=== PATIENT | female | born 1995 | race African-American/Black ===

== ENCOUNTER 2019-04-12 02:37 | Emergency (ER) | payer MEDICAID ==
[~2019-04-12] VITALS: Ht 177.8 cm; Wt 87.0 kg
[2019-04-12] MEDS ORDERED: SODIUM CHLORIDE 0.9% 1,000 ML IV ONE (03:59)
[2019-04-12] MEDS ORDERED: METOCLOPRAMIDE HCL 10MG/2ML VIAL IV ONE (04:00)
[2019-04-12 04:25] LABS: CLARITY URINE CLOUDY (CLEAR); COLOR URINE YELLOW (YELLOW); KETONES URINE TRACE (NEGATIVE); LEUKOCYTE ESTERASE URINE 3+ (NEGATIVE); NITRITE URINE NEGATIVE (NEGATIVE); OCCULT BLOOD URINE 2+ (NEGATIVE); PROTEIN URINE NEGATIVE (NEGATIVE); SPECIFIC GRAVITY URINE 1.024 (1.005-1.030)
[2019-04-12 04:26] LABS: BASOPHILS % 0.7 % (0.0-2.0); EOSINOPHILS % 1.3 % (0.0-5.0); HEMATOCRIT. 40.1 % (36.0-48.0); HEMOGLOBIN. 13.7 g/dL (12.0-16.0); LYMPHOCYTES % 24.1 % (20.0-50.0); MEAN CORPUSCULAR HEMOGLOBIN 32.2 pg (28.0-32.0); MEAN CORPUSCULAR VOLUME 94.5 fL (81.0-99.0); MEAN PLATELET VOLUME 7.9 fl (7.4-10.4); MONOCYTES % 11.1 % (2.0-8.0); NEUTROPHILS % 62.8 % (40.0-76.0); PLATELET 276 x1000/uL (130-400); RED BLOOD CELL COUNT 4.24 mill/uL (4.2-5.4); RED CELL DISTRIBUTION WIDTH 12.7 % (11.6-14.6)
[2019-04-12 04:32] LABS: CHLORIDE 107 mEq/L (98-107)
[2019-04-12 04:33] LABS: HCG SCREEN POSITIVE
[2019-04-12 04:56] LABS: B-HCG QUANTITATIVE 26112 mIU/mL (<3)
[2019-04-12 07:09] VITALS: BP 121/78
== END 2019-04-12 07:25 | disposition home or self-care (01) ==
LOC: ER 02:37
DX: O23.41 Unspecified infection of urinary tract in pregnancy, first trimester (principal); Z3A.01 Less than 8 weeks gestation of pregnancy
CPT/HCPCS: 36415; 76801; 76817; 80053; 81003; 81025; 84702; 84703; 85025; 86850; 86900; 86901; 87077; 87086; 87186; 96361; 96374; 99284; J2765; J7030; Z7610

== ENCOUNTER 2021-08-23 08:12 | Emergency (ER) | payer MEDICAID ==
[~2021-08-23] VITALS: Ht 162.6 cm; Wt 102.0 kg
[2021-08-23 08:15] VITALS: BP 128/75
== END 2021-08-23 09:49 | disposition home or self-care (01) ==
LOC: ER 08:12
DX: Z32.02 Encounter for pregnancy test, result negative (principal)
CPT/HCPCS: 81025; 99282

== ENCOUNTER 2021-12-15 11:27 | Emergency (ER) | payer MEDICAID ==
[~2021-12-15] VITALS: Ht 167.6 cm; Wt 88.0 kg
[2021-12-15] MEDS ORDERED: SODIUM CHLORIDE 0.9% 1,000 ML IV ONE (12:00)
[2021-12-15 12:16] VITALS: BP 107/68
[2021-12-15 12:24] LABS: BASOPHILS % 0.2 % (0.0-2.0); EOSINOPHILS % 0.9 % (0.0-5.0); HEMOGLOBIN. 14.3 g/dL (12.0-16.0); LYMPHOCYTES % 14.7 % (20.0-50.0); MEAN CORPUSCULAR HEMOGLOBIN 31.6 pg (28.0-32.0); MEAN CORPUSCULAR VOLUME 92.5 fL (81.0-99.0); MEAN PLATELET VOLUME 8.3 fl (7.4-10.4); MONOCYTES % 5.5 % (2.0-8.0); NEUTROPHILS % 78.7 % (40.0-76.0); PLATELET 319 x1000/uL (130-400); RED BLOOD CELL COUNT 4.54 mill/uL (4.2-5.4); RED CELL DISTRIBUTION WIDTH 12.6 % (11.6-14.6)
[2021-12-15 12:35] LABS: CHLORIDE 106 mEq/L (98-107)
[2021-12-15 12:42] LABS: BETA HYDROXYBUTYRATE 0.1 mMol/L (0.0-0.3)
[2021-12-15] MEDS ORDERED: ACETAMINOPHEN 325MG TABLET PO ONE (13:15)
[2021-12-15 14:27] LABS: CLARITY URINE TURBID (CLEAR); COLOR URINE YELLOW (YELLOW); KETONES URINE NEGATIVE (NEGATIVE); LEUKOCYTE ESTERASE URINE 1+ (NEGATIVE); NITRITE URINE NEGATIVE (NEGATIVE); OCCULT BLOOD URINE TRACE (NEGATIVE); PROTEIN URINE NEGATIVE (NEGATIVE); SPECIFIC GRAVITY URINE 1.028 (1.005-1.030)
[2021-12-15] MEDS ORDERED: TOPUD MT (15:24)
[2021-12-15] MEDS ORDERED: METR500T MT (15:24)
[2021-12-15] MEDS ORDERED: CEPH250T MT (15:24)
== END 2021-12-15 16:47 | disposition home or self-care (01) ==
LOC: ER 11:27
DX: O23.41 Unspecified infection of urinary tract in pregnancy, first trimester (principal); N39.0 Urinary tract infection, site not specified; A59.9 Trichomoniasis, unspecified; B96.89 Other specified bacterial agents as the cause of diseases classified elsewhere; O24.414 Gestational diabetes mellitus in pregnancy, insulin controlled; R73.9 Hyperglycemia, unspecified; O99.281 Endocrine, nutritional and metabolic diseases complicating pregnancy, first trimester; E87.1 Hypo-osmolality and hyponatremia; E87.5 Hyperkalemia; Z3A.01 Less than 8 weeks gestation of pregnancy
CPT/HCPCS: 36415; 80053; 81003; 82010; 82962; 83690; 85025; 96360; 99283; J7030

== ENCOUNTER 2022-03-20 08:02 | Observation (INO) | payer MEDICAID ==
[~2022-03-20] VITALS: Ht 162.6 cm; Wt 112.0 kg
[~2022-03-20 08:02] MED LIST: CEPH250T MT; METR500T MT; TOPUD MT
[2022-03-20 08:09] VITALS: BP 126/76
[2022-03-20] MEDS ORDERED: PNV1TABL76 MT (10:01)
== END 2022-03-20 10:05 | disposition home or self-care (01) ==
LOC: ER 08:26 → 8 EST A/PP 09:32
PROVIDERS: ADMIT Specialist; ATTEND Specialist
DX: O36.8120 Decreased fetal movements, second trimester, not applicable or unspecified (principal); O24.419 Gestational diabetes mellitus in pregnancy, unspecified control; Z79.899 Other long term (current) drug therapy; Z3A.23 23 weeks gestation of pregnancy
CPT/HCPCS: 99281; G0378; 59025; 99284

== ENCOUNTER 2022-06-10 11:22 | Observation (INO) | payer MEDICAID ==
[~2022-06-10] VITALS: Ht 162.6 cm; Wt 127.0 kg
[~2022-06-10 11:22] MED LIST changes: -CEPH250T MT; -METR500T MT; +PNV1TABL76 MT; -TOPUD MT
[2022-06-10] MEDS ORDERED: LACTATED RINGERS 1,000 ML IV SCH (12:00)
[2022-06-10] MEDS ORDERED: ONDANSETRON HCL 4MG/2ML INJ IV PRN (12:00)
[2022-06-10 12:57] LABS: BASOPHILS % 0.3 % (0.0-2.0); EOSINOPHILS % 0.2 % (0.0-5.0); HEMOGLOBIN. 13.9 g/dL (12.0-16.0); MEAN CORPUSCULAR HEMOGLOBIN 31.5 pg (28.0-32.0); MEAN CORPUSCULAR VOLUME 92.7 fL (81.0-99.0); MEAN PLATELET VOLUME 8.4 fl (7.4-10.4); MONOCYTES % 8.6 % (2.0-8.0); NEUTROPHILS % 76.9 % (40.0-76.0); PLATELET 251 x1000/uL (130-400); RED BLOOD CELL COUNT 4.42 mill/uL (4.2-5.4); RED CELL DISTRIBUTION WIDTH 13.6 % (11.6-14.6)
[2022-06-10 13:05] LABS: CHLORIDE 104 mEq/L (98-107)
[2022-06-10] MEDS ORDERED: ONDANSETRON 4MG ODT PO NR (14:00)
[2022-06-11] MEDS ORDERED: INSU100I24 SQ (07:04)
== END 2022-06-10 14:15 | disposition home or self-care (01) ==
LOC: 8 EST LDRP 11:22
PROVIDERS: ADMIT Obstetrics & Gynecology; ATTEND Obstetrics & Gynecology
DX: O21.2 Late vomiting of pregnancy (principal); Z20.822 Contact with and (suspected) exposure to COVID-19; O24.419 Gestational diabetes mellitus in pregnancy, unspecified control; Z79.4 Long term (current) use of insulin; Z3A.33 33 weeks gestation of pregnancy
CPT/HCPCS: 36415; 59025; 76805; 76818; 80053; 85025; 87426; G0378; J2405; Q0162; 99281; J7120

== ENCOUNTER 2022-06-10 14:04 | Emergency (ER) | payer MEDICAID ==
[~2022-06-10] VITALS: Ht 162.6 cm; Wt 136.0 kg
[2022-06-10 14:20] VITALS: BP 141/80
[2022-06-11] MEDS ORDERED: INSU100I24 SQ (07:04)
== END 2022-06-10 18:29 | disposition left against medical advice (07) ==
LOC: ER 14:04
DX: Z53.21 Procedure and treatment not carried out due to patient leaving prior to being seen by health care provider (principal); E11.9 Type 2 diabetes mellitus without complications; Z88.3 Allergy status to other anti-infective agents

== ENCOUNTER 2022-06-11 04:56 | Inpatient (IN) | payer MEDICAID ==
[~2022-06-11] VITALS: Ht 167.6 cm; Wt 117.9 kg
[2022-06-11] MEDS ORDERED: ONDANSETRON HCL 4MG/2ML INJ IV ONE (05:30)
[2022-06-11] MEDS ORDERED: BUTORPHANOL TARTRATE 2 MG/ML VIAL IV PRN (05:30)
[2022-06-11] MEDS ORDERED: LACTATED RINGERS 1,000 ML IV ONE (05:30)
[2022-06-11 05:41] VITALS: BP 157/88
[2022-06-11] MEDS ORDERED: PANTOPRAZOLE SODIUM 40 MG/VIAL IV ONE (05:45)
[2022-06-11 06:30] LABS: HEMATOCRIT. 41.8 % (36.0-48.0); HEMOGLOBIN. 14.1 g/dL (12.0-16.0); MEAN CORPUSCULAR HEMOGLOBIN 31.8 pg (28.0-32.0); MEAN CORPUSCULAR VOLUME 94.2 fL (81.0-99.0); MEAN PLATELET VOLUME 8.6 fl (7.4-10.4); PLATELET 276 x1000/uL (130-400); RED BLOOD CELL COUNT 4.43 mill/uL (4.2-5.4); RED CELL DISTRIBUTION WIDTH 13.5 % (11.6-14.6)
[2022-06-11 06:37] LABS: CLARITY URINE CLEAR (CLEAR); COLOR URINE YELLOW (YELLOW); KETONES URINE 4+ (NEGATIVE); LEUKOCYTE ESTERASE URINE NEGATIVE (NEGATIVE); NITRITE URINE NEGATIVE (NEGATIVE); OCCULT BLOOD URINE TRACE (NEGATIVE); PROTEIN URINE 2+ (NEGATIVE); SPECIFIC GRAVITY URINE 1.026 (1.005-1.030)
[2022-06-11 06:48] LABS: *AMPHETAMINES SCREEN URINE NEGATIVE (NEGATIVE); *BARBITURATES SCREEN URINE NEGATIVE (NEGATIVE); *BENZODIAZEPINES SCREEN URINE NEGATIVE (NEGATIVE); *COCAINE SCREEN URINE NEGATIVE (NEGATIVE); CANNABINOID URINE SCREEN NEGATIVE (NEGATIVE); METHADONE URINE SCREEN NEGATIVE (NEGATIVE); OPIATES URINE SCREEN NEGATIVE (NEGATIVE); PHENCYCLIDINE URINE SCREEN NEGATIVE (NEGATIVE)
[2022-06-11 06:50] LABS: CHLORIDE 107 mEq/L (98-107)
[2022-06-11] MEDS ORDERED: INSU100I24 SQ (07:04)
[2022-06-11] MEDS ORDERED: DEXTROSE 50% WATER 50ML SYRINGE IV PRN (07:30)
[2022-06-11] MEDS ORDERED: CITRIC ACID/SODIUM CITRATE SOLN 30ML UDC PO NR (07:45)
[2022-06-11] MEDS: INSULIN LISPRO 100 UNITS/ML SUBCUT SCH ×4 (08:27→21:19)
[2022-06-11] MEDS ORDERED: CEFAZOLIN 1,000 MG in SODIUM CHLORIDE 0.9% 50 ML IV NR (08:30)
[2022-06-11] MEDS ORDERED: BLOOD SUGAR DIAGNOSTIC STRIP TEST SCH ×2 (09:00→16:30)
[2022-06-11 10:39] LABS: PLATELET ESTIMATE NORMAL
[2022-06-11] MEDS: FAMOTIDINE 20MG TABLET PO SCH ×2 (11:33→19:27)
[2022-06-11] MEDS: LACTATED RINGERS 1,000 ML IV SCH (15:40)
[2022-06-11] MEDS: ONDANSETRON INJ 8 MG in DEXTROSE 5% WATER 46 ML IV PRN (16:58)
[2022-06-11] MEDS ORDERED: PANTOPRAZOLE 80 MG in SODIUM CHLORIDE 0.9% 100 ML IV SCH (17:00)
[2022-06-11] MEDS: SUCRALFATE 1 G/10 ML UDC PO SCH ×2 (17:22→21:25)
[2022-06-11] MEDS ORDERED: INSULIN LISPRO 100 UNITS/ML SUBCUT NR (18:07)
[2022-06-11] MEDS ORDERED: METOCLOPRAMIDE HCL 10MG/2ML VIAL IV NR (21:45)
[2022-06-12 00:43] LABS: CHLORIDE 111 mEq/L (98-107)
[2022-06-12] MEDS: INSULIN LISPRO 100 UNITS/ML SUBCUT SCH ×3 (01:04→09:20)
[2022-06-12 01:17] LABS: CHLORIDE 112 mEq/L (98-107)
[2022-06-12] MEDS: LACTATED RINGERS 1,000 ML IV SCH (01:40)
[2022-06-12 07:30] LABS: HEMOGLOBIN. 13.6 g/dL (12.0-16.0); MEAN CORPUSCULAR HEMOGLOBIN 31.8 pg (28.0-32.0); MEAN CORPUSCULAR VOLUME 98.6 fL (81.0-99.0); MEAN PLATELET VOLUME 8.7 fl (7.4-10.4); PLATELET 278 x1000/uL (130-400); RED BLOOD CELL COUNT 4.26 mill/uL (4.2-5.4); RED CELL DISTRIBUTION WIDTH 14.6 % (11.6-14.6)
[2022-06-12] MEDS ORDERED: PANTOPRAZOLE 80 MG in SODIUM CHLORIDE 0.9% 100 ML IV SCH (07:45)
[2022-06-12] MEDS ORDERED: SUCRALFATE 1 G/10 ML UDC PO SCH (08:00)
[2022-06-12] MEDS: ONDANSETRON INJ 8 MG in DEXTROSE 5% WATER 46 ML IV PRN (08:55)
[2022-06-12] MEDS ORDERED: PANTOPRAZOLE SODIUM 40 MG/VIAL IV SCH (09:00)
[2022-06-12] MEDS ORDERED: INSULIN LISPRO 100 UNITS/ML SUBCUT NR ×2 (09:15→13:00)
[2022-06-12] MEDS ORDERED: SUCR1ORA15 PO (13:28)
[2022-06-12] MEDS ORDERED: FAMO10TA41 MT (13:29)
[2022-06-13 04:57] LABS: PLATELET ESTIMATE NORMAL
== END 2022-06-12 14:00 | disposition home or self-care (01) | DRG 566 ==
LOC: ER 04:56 → OBSVTOIN 04:57 → 8 EST LDRP 04:57
PROVIDERS: ADMIT Obstetrics & Gynecology; ATTEND Obstetrics & Gynecology
DX: O47.03 False labor before 37 completed weeks of gestation, third trimester (principal); E11.65 Type 2 diabetes mellitus with hyperglycemia; O13.3 Gestational [pregnancy-induced] hypertension without significant proteinuria, third trimester; R00.0 Tachycardia, unspecified; F43.9 Reaction to severe stress, unspecified; O99.213 Obesity complicating pregnancy, third trimester; Z3A.36 36 weeks gestation of pregnancy; Z76.5 Malingerer [conscious simulation]; Z79.4 Long term (current) use of insulin; Z91.19 Patient's noncompliance with other medical treatment and regimen; Z88.1 Allergy status to other antibiotic agents
CPT/HCPCS: 36415; 76805; 76818; 80048; 80053; 80305; 81003; 82962; 83036; 83735; 84484; 85025; 93005; 93306; 99281; 99285; C9113; J0595; J0690; J1815; J2405; J2765; J7050; J7060; J7120